=== PATIENT | female | born 1975 | race Hispanic/Latino ===

== ENCOUNTER 2017-07-08 06:57 | Outpatient (CLI) | payer OTHER ==
--- NOTE | 2017-07-08 08:39 | ULT ---
COMPLETE ABDOMEN ULTRASOUND: INDICATION: Elevated LFTs. TECHNIQUE: Corea scale, color Doppler, and spectral Doppler were obtained of the abdomen. FINDINGS: The visualized abdominal aorta, IVC, and main portal vein appear within normal limits. The visualized liver was normal-appearing. Visualized pancreas was normal-appearing. The gallbladde r was normal-appearing. No sonographic Goel's sign is reported. The common bile duct measures 3.9 mm. The right kidney measures 10.9 x 4.7 x 4.7 cm. The left kidney measured 10.9 x 7.7 x 5.9 cm. No foc al renal lesion or hydronephrosis is evident. The spleen measured 9.2 cm in length. IMPRESSION: No sonographic abnormality within the abdomen. POS: IRASEMA
== END 2017-07-08 06:58 | disposition home or self-care (01) ==
LOC: SCSULT 06:57
PROVIDERS: ATTEND Nurse Practitioner Family
DX: R79.89 Other specified abnormal findings of blood chemistry (principal)
CPT/HCPCS: 76700

== ENCOUNTER 2019-07-23 14:28 | Outpatient (CLI) | payer OTHER ==
--- NOTE | 2019-07-23 16:00 | CT ---
CT temporal bones noncontrast: 07/23/2019 HISTORY: 43-year-old female with H90.6, mixed hearing loss, bilateral COMPARISON: None FINDINGS: RIGHT: There is soft tissue density opacification of the right epitympanum, completely surrounding the head of the malleus and almost all of the body of the incus, contiguous with soft tissue density completely opacifying the right aditus ad antrum and entire right mastoid antrum. There is a paucity of right mastoid air cells, and a few of them that exist are also all totally opacified. There is diffuse sclerosis of the right mastoid bone. No erosion of ossicles. In addition to being opacified by soft tissue density, the volume of the right epitympanum cavity is unusually small, such that the head of the malleus and body of the incus are almost in contact with the lateral osseous wall of the attic, and especially in contact with a thickened abutting the right tegmen tympani. The mesotympanum is clear, including oval window niche. However, there is questionable thickening of a portion of the amparo. The right hypotympanum is clear. There is cerumen in the right external auditory canal. LEFT: The middle ear cavity, and mastoid antrum, are clear. There is opacification of several left inferior mastoid air cells consistent with mastoid effusion. Most of the left mastoid air cells are clear. The left ossicles are normal. The left tegmen tympani is intact. There is thickening of the left tympanic membrane. Bilateral internal auditory canals, cochleae, vestibules, vestibular aqueducts, semicircular canals, facial nerve canals, carotid canals, and jugular bulbs, have normal morphology. There is a high riding left jugular bulb. IMPRESSION: 1. Evidence for chronic right tympanomastoid disease: 2. The right epitympanum is opacified by soft tissue density material, and has small chamber size wit h bony thickening, suggestive of tympanosclerosis. 3. The right epitympanic soft tissue density opacification is contiguous with total opacification of right mastoid antrum and opacification of the few existing right mastoid air cells. 4. Diffuse sclerosis of entire right mastoid bone. 5. Thickening of left tympanic membrane. 6. Otherwise, the left tympanomastoid cavity is normal.
== END 2019-07-23 14:29 | disposition home or self-care (01) ==
LOC: CT 14:28
PROVIDERS: ATTEND Student in an Organized Health Care Education/Training Program
DX: H90.6 Mixed conductive and sensorineural hearing loss, bilateral (principal); H73.892 Other specified disorders of tympanic membrane, left ear; H74.8X1 Other specified disorders of right middle ear and mastoid; M79.89 Other specified soft tissue disorders
CPT/HCPCS: 70480

== ENCOUNTER 2019-12-09 07:26 | Outpatient (CLI) | payer OTHER ==
[2019-12-09 11:14] LABS: BHCG - Serum Negative (NEGATIVE); Pregs Control Background? CLEAR/WHITE (CLR/WHITE); Pregs Control Bar Appear? YES (CONTROL BAR)
[2019-12-09 17:32] LABS: SARS-CoV-2 MS2 Positive; SARS-CoV-2 N Gene Negative; SARS-CoV-2 S Gene Negative; SARS-CoV-2 by NAA Not Detected (NotDetected); SARS-CoV-2 orf1ab Negative
== END 2019-12-09 07:27 | disposition home or self-care (01) ==
LOC: LABBT 07:26
PROVIDERS: ATTEND Otolaryngology Otology & Neurotology
DX: Z01.812 Encounter for preprocedural laboratory examination (principal); H72.92 Unspecified perforation of tympanic membrane, left ear; H90.8 Mixed conductive and sensorineural hearing loss, unspecified; Z20.828 Contact with and (suspected) exposure to other viral communicable diseases
CPT/HCPCS: 84703; 85014; 87635; U0003

== ENCOUNTER 2019-12-13 07:06 | Day surgery (SDC) | payer OTHER ==
[2019-12-13] MEDS ORDERED: EPINEPHrine 1 MG/ML AMP ONE (07:59)
[2019-12-13] MEDS ORDERED: Bupivacaine/Epinephrine 0.25% 30 ML VIAL ONE (07:59)
[2019-12-13] MEDS ORDERED: Sodium Chloride 0.9% 10 ML ONE (07:59)
[2019-12-13] MEDS ORDERED: Bacitracin Zinc Ointment 30 gm TUBE ONE (07:59)
[2019-12-13] MEDS ORDERED: Lidocaine 1% w/Epinephrine 1:100K 20 ML VIAL ONE (07:59)
[2019-12-13] MEDS ORDERED: NEOMYCIN-POLYMYXIN-HC EAR SUSP 200 DROP/10 ML BOT ONE (07:59)
[2019-12-13] MEDS ORDERED: Fentanyl 250 MCG/5 ML VIAL ONE (08:06)
[2019-12-13] MEDS ORDERED: Midazolam HCl 2 mg/2 ml Vial ONE (08:06)
[2019-12-13] MEDS ORDERED: SUGAMMADEX SODIUM 200 MG/2 ML VIAL ONE (08:07)
[2019-12-13] MEDS ORDERED: Ketorolac Tromethamine 30 MG/ML VIAL ONE (12:17)
[2019-12-13] MEDS ORDERED: PHENYLEPHRINE-NS 100 MCG/ML 10 ML SYRINGE ONE (12:17)
[2019-12-13] MEDS ORDERED: diphenhydrAMINE 50 MG/ML VIAL ONE (12:17)
[2019-12-13] MEDS ORDERED: PROPOFOL 200 MG/20 ML VIAL ONE (12:17)
[2019-12-13] MEDS ORDERED: Dexamethasone 20 MG/5 ML VIAL ONE (12:17)
[2019-12-13] MEDS ORDERED: Ondansetron PF 4 MG/2 ML Vial ONE (12:17)
[2019-12-13] MEDS ORDERED: Rocuronium Bromide 10 MG/ML (10ML VIAL) ONE (12:17)
--- NOTE | 2019-12-13 12:31 | OP ---
DATE OF PROCEDURE: 12/13/2019 PREOPERATIVE DIAGNOSIS: Left tympanic membrane perforation. PROCEDURES PERFORMED: Left tympanoplasty and microscopic surgical procedure. POSTOPERATIVE DIAGNOSIS: Left tympanic membrane perforation. ANESTHESIA: General. COMPLICATIONS: None. ESTIMATED BLOOD LOSS: 1 mL. SPECIMENS: None. ASSISTANTS: None. DISPOSITION: Stable to recovery room. PROCEDURE IN DETAIL: After informed consent was obtained, the patient was taken to the operating room, placed in supine position. General endotracheal anesthetic was administered. Table was rotated 180 degrees. Left ear was injected postauricular and transcanal with 0.25% Marcaine with epinephrine. Then, it was draped and prepped in a sterile fashion with cotton ball in the canal. With the ear draped and prepped sterilely, microscope was brought into view and irrigated the canal extensively noting the TM perforation was central and inferior. Incision was made supra-auricular and harvested fascia. Wound irrigated with copious amounts of saline, closed with 3-0 and Dermabond. The perforation was about 3 mm wide and had 1 mm of edge inferiorly and throughout. The perforation was rimmed 360 degrees with cup forceps and a #2 knife. Tympanum meatal flap was elevated at 12 and 6 o'clock position. Malleus and incus moved well in continuity. Chorda tympani nerve was left unmolested and intact. Fascial graft was placed underlay and impacted in the middle ear space with Gelfoam and had a grade 360 degree coverage. This was then compressed laterally as the flap was placed back down showing it to maintain that 360 degrees of approximation and Gelfoam was applied through the middle ear canal and bacitracin ointment. A cotton ball was applied. Microscope was integral part of procedure using 2 to 14 power magnification and high illumination. The patient tolerated this procedure well, turned over anesthesia in stable condition. Job ID: [id number]
== END 2019-12-13 10:50 | disposition home or self-care (01) ==
LOC: SDC 07:06
PROVIDERS: ATTEND Otolaryngology Otology & Neurotology
PROC: 09Q88ZZ Repair Left Tympanic Membrane, Via Natural or Artificial Opening Endoscopic (ICD-10-PCS; principal; 2019-12-13)
DX: H72.92 Unspecified perforation of tympanic membrane, left ear (principal); H60.92 Unspecified otitis externa, left ear; H90.8 Mixed conductive and sensorineural hearing loss, unspecified
CPT/HCPCS: J0171; J1100; J1200; J1885; J2250; J2405; J2704; J3010; J3490